=== PATIENT | female | born 1965 | race Caucasian/White ===

== ENCOUNTER 2023-11-30 03:24 | Emergency (ER) | payer MEDICAID ==
[~2023-11-30] VITALS: Ht 170.2 cm; Wt 73.0 kg
[2023-11-30 03:28] VITALS: O2SAT 99
[2023-11-30] MEDS ORDERED: AZIT500T8 MT (04:21)
[2023-11-30] MEDS ORDERED: IBUP-2029 MT (04:21)
[2023-11-30] MEDS: AZITHROMYCIN 500 MG TABLET PO ONE (04:46)
[2023-11-30] MEDS: IBUPROFEN 600MG TABLET PO ONE (04:47)
[2023-11-30 05:14] VITALS: BP 156/92; PULSE 76; RESP 18; TEMP 98.4
== END 2023-11-30 05:17 | disposition home or self-care (01) ==
LOC: ER 03:46
DX: H66.91 Otitis media, unspecified, right ear (principal); I10 Essential (primary) hypertension; F19.90 Other psychoactive substance use, unspecified, uncomplicated; Z98.890 Other specified postprocedural states; Z88.0 Allergy status to penicillin
CPT/HCPCS: 99283

== ENCOUNTER 2024-04-22 14:33 | Emergency (ER) | payer MEDICAID, OTHER ==
[~2024-04-22] VITALS: Ht 175.3 cm; Wt 86.2 kg
[~2024-04-22 14:33] MED LIST: AZIT500T8 MT; IBUP-2029 MT
[2024-04-22 14:37] VITALS: BP 134/90; RESP 16; TEMP 98.4; O2SAT 100
[2024-04-22 14:45] VITALS: PULSE 104; O2SAT 96
== END 2024-04-22 17:30 | disposition left against medical advice (07) ==
LOC: ER 14:33
DX: Z53.21 Procedure and treatment not carried out due to patient leaving prior to being seen by health care provider (principal)

== ENCOUNTER 2024-09-23 11:20 | Emergency (ER) | payer OTHER ==
[~2024-09-23] VITALS: Ht 177.8 cm; Wt 100.0 kg
[2024-09-23 11:27] VITALS: O2SAT 99
[2024-09-23 13:07] LABS: BASOPHILS % 1.3 % (0.0-2.0); EOSINOPHILS % 3.5 % (0.0-5.0); HEMATOCRIT. 40.1 % (36.0-48.0); HEMOGLOBIN. 13.8 g/dL (12.0-16.0); LYMPHOCYTES % 36.7 % (20.0-50.0); MEAN CORPUSCULAR HEMOGLOBIN 28.2 pg (28.0-32.0); MEAN CORPUSCULAR HGB CONC 34.4 g/dL (31.0-37.0); MEAN CORPUSCULAR VOLUME 81.8 fL (81.0-99.0); MEAN PLATELET VOLUME 8.4 fl (7.4-10.4); MONOCYTES % 5.7 % (2.0-8.0); NEUTROPHILS % 52.8 % (40.0-76.0); PLATELET 294 x1000/uL (130-400); RED CELL DISTRIBUTION WIDTH 13.6 % (11.6-14.6)
[2024-09-23 13:09] LABS: CHLORIDE 104 mEq/L (98-107); POTASSIUM 3.8 mEq/L (3.5-5.1); SODIUM 140 mEq/L (136-145)
[2024-09-23 13:10] LABS: CARBON DIOXIDE 31 mEq/L (21-32)
[2024-09-23 13:11] LABS: CALCIUM 9.8 mg/dL (8.7-10.4)
[2024-09-23 13:15] LABS: CREATININE 0.7 mg/dL (0.6-1.0); GLUCOSE 112 mg/dL (70-105); UREA NITROGEN BLOOD 11 mg/dL (9-23)
[2024-09-23 13:17] LABS: ALANINE AMINOTRANSFERASE 20 IU/L (10-49); ALBUMIN 4.2 g/dL (3.2-4.8); ASPARTATE AMINOTRANSFERASE 24 IU/L (<34)
[2024-09-23 13:18] LABS: BILIRUBIN TOTAL 0.7 mg/dL (0.1-1.0); PROTEIN TOTAL 7.2 g/dL (6.0-8.3)
[2024-09-23] MEDS: LORAZEPAM 1MG TABLET PO ONE (13:39)
[2024-09-23] MEDS: CEFTRIAXONE SODIUM 1G VIAL IM ONE (13:42)
[2024-09-23] MEDS: KETOROLAC 30MG/ML VIAL IM ONE (13:56)
[2024-09-23 18:19] VITALS: BP 132/67; PULSE 82; RESP 20; TEMP 36.7; O2SAT 99
== END 2024-09-23 18:54 | disposition short-term general hospital (02) ==
LOC: ER 11:20 → CANBEDREQ 16:09 → ER 18:54
DX: S09.8XXA Other specified injuries of head, initial encounter (principal); L03.115 Cellulitis of right lower limb; I10 Essential (primary) hypertension; J45.909 Unspecified asthma, uncomplicated; Z88.0 Allergy status to penicillin; X58.XXXA Exposure to other specified factors, initial encounter; Y93.89 Activity, other specified; Y92.89 Other specified places as the place of occurrence of the external cause; Y99.8 Other external cause status
CPT/HCPCS: 80053; 83605; 85025; 87040; 36415; 84145; 93971; 70450; 96372; 99285; J0696; J1885; Z7610 ×3

== ENCOUNTER 2025-01-18 19:40 | Emergency (ER) | payer OTHER ==
[~2025-01-18] VITALS: Ht 180.3 cm; Wt 87.0 kg
[2025-01-18 19:50] VITALS: O2SAT 98
[2025-01-18] MEDS ORDERED: SILV50CR31 TP (20:52)
[2025-01-18] MEDS ORDERED: ACET-2708 MT (20:54)
[2025-01-18] MEDS ORDERED: IBUP-2030 MT (20:54)
[2025-01-18] MEDS: HYDROCODONE/ACETAMINOPHEN 10/325MG TABLET PO SCH (21:23)
[2025-01-18] MEDS: IBUPROFEN 800MG TABLET PO SCH (21:23)
[2025-01-18] MEDS: BACITRACIN 14GM TUBE TOP ONE (22:33)
[2025-01-18 23:10] VITALS: BP 141/76; PULSE 83; RESP 16; TEMP 36.8; O2SAT 95
== END 2025-01-18 23:16 | disposition home or self-care (01) ==
LOC: ER 19:53
DX: T24.221A Burn of second degree of right knee, initial encounter (principal); T24.231A Burn of second degree of right lower leg, initial encounter; F17.200 Nicotine dependence, unspecified, uncomplicated; I10 Essential (primary) hypertension; J45.909 Unspecified asthma, uncomplicated; Z88.0 Allergy status to penicillin; X58.XXXA Exposure to other specified factors, initial encounter; Y93.89 Activity, other specified; Y92.89 Other specified places as the place of occurrence of the external cause; Y99.8 Other external cause status
CPT/HCPCS: 16020; 99285

== ENCOUNTER 2025-04-19 09:54 | Emergency (ER) | payer OTHER ==
[~2025-04-19] VITALS: Ht 180.3 cm; Wt 100.0 kg
[~2025-04-19 09:54] MED LIST changes: +ACET-2708 MT; +IBUP-1455 MT; -IBUP-2029 MT; +IBUP-2030 MT; +SILV50CR31 TP
[2025-04-19 09:57] VITALS: O2SAT 98
[2025-04-19] MEDS: FAMOTIDINE 20MG/2ML VIAL IV NR (10:38)
[2025-04-19] MEDS: ASPIRIN 325MG TABLET PO NR (10:38)
[2025-04-19] MEDS: MORPHINE SULFATE 4 MG/ML INJ (FOR IV/IM USE) IV NR (10:39)
[2025-04-19 11:05] LABS: BASOPHILS % 1.0 % (0.0-2.0); EOSINOPHILS % 2.0 % (0.0-5.0); HEMATOCRIT. 43.1 % (36.0-48.0); HEMOGLOBIN. 14.9 g/dL (12.0-16.0); LYMPHOCYTES % 20.8 % (20.0-50.0); MEAN PLATELET VOLUME 9.0 fl (7.4-10.4); MONOCYTES % 6.7 % (2.0-8.0); NEUTROPHILS % 69.5 % (40.0-76.0); PLATELET 304 x1000/uL (130-400); RED BLOOD CELL COUNT 5.21 mill/uL (4.2-5.4); RED CELL DISTRIBUTION WIDTH 13.3 % (11.6-14.6)
[2025-04-19 11:25] LABS: CREATININE 0.8 mg/dL (0.6-1.0)
[2025-04-19 11:26] LABS: UREA NITROGEN BLOOD 17 mg/dL (9-23)
[2025-04-19 11:27] LABS: TROPONIN I HIGH SENSITIVITY < 4 ng/L (3.0-34)
[2025-04-19 15:16] VITALS: BP 114/68; PULSE 90; RESP 17; TEMP 36.8; O2SAT 99
== END 2025-04-19 15:15 | disposition short-term general hospital (02) ==
LOC: ER 09:54 → CMPBEDREQ 04-20 07:22
DX: R07.9 Chest pain, unspecified (principal); R68.84 Jaw pain; I10 Essential (primary) hypertension; J45.909 Unspecified asthma, uncomplicated; Z88.0 Allergy status to penicillin; Z88.2 Allergy status to sulfonamides; Z88.8 Allergy status to other drugs, medicaments and biological substances; Z93.3 Colostomy status
CPT/HCPCS: 99285; 96374; 71045; 96375; 80048; 85025; 84484; 36415; 93005; J1308; J2270